=== PATIENT | female | born 1995 | race American Indian/Alaskan Native ===

== ENCOUNTER 2019-11-12 20:48 | Emergency (ER) | payer BC, OTHER ==
[2019-11-12] MEDS ORDERED: TETANUS,DIPH,PERTUSS(ACELL) VACCINE 0.5 ML SYRINGE IM ONE (21:32)
--- NOTE | 2019-11-12 21:32 | Event Note ---
ED Screening Note ED Screening Note: SI that began tonight self harm, cut her arms, used a hunting knife unsure of last tetanus immunization states she was going to take pills and drink alcohol to overdose states in the past she has engaged in self harming behavior has never been to a psych facility no [place] no hallucinations PMHx IBS, depression, anxiety LNMP: end october +tobacco +marijuana occ drinker +cocaine, used yesterday This initial assessment/diagnostic orders/clinical plan/treatment(s) is/are subject to change based on patients health status, clinical progression and re- assessment by fellow clinical providers in the ED. Further treatment and workup at subsequent clinical providers discretion. Patient/guardian urged not to elope from the ED as their condition may be serious if not clinically assessed and managed. Initial orders include: medical clearance for psych ED hold mental health consult
[2019-11-12 22:29] LABS: Amphetamine Screen,Urine PRESUMPTIVE NEGATIVE; Methadone Screen,Urine PRESUMPTIVE NEGATIVE; Opiate Screen,Urine PRESUMPTIVE NEGATIVE
[2019-11-12 22:29] LABS: Basophils % (Auto) 0.2 % (0.0-1.8); Eosinophils # (Auto) 0.1 K/mm3 (0.0-0.4); Hematocrit 37.6 % (30.3-42.9); Hemoglobin 12.5 gm/dl (10.1-14.3); Lymphocytes # (Auto) 1.5 K/mm3 (1.2-5.4); Lymphocytes % (Auto) 15.2 % (13.4-35.0); Mean Corpuscular HGB Conc 33 % (30-34); Mean Corpuscular Volume 78 fl (79-97); Monocytes # (Auto) 0.6 K/mm3 (0.0-0.8); Monocytes % (Auto) 6.1 % (0.0-7.3); Platelet Count 398 K/mm3 (140-440); Red Blood Count 4.83 M/mm3 (3.65-5.03); Red Cell Distribution Width 15.4 % (13.2-15.2)
[2019-11-12 22:31] LABS: Alanine Aminotransferase 12 units/L (7-56); Albumin 4.4 g/dL (3.9-5); BUN/Creatinine Ratio 11; Blood Urea Nitrogen 10 mg/dL (7-17); Calcium 9.5 mg/dL (8.4-10.2); Hemolysis Index 1
[2019-11-12 22:38] LABS: Bilirubin,Urine NEG (Negative); Color,Urine Yellow (Yellow)
[2019-11-12 22:39] LABS: Blood,Urine NEG (Negative); Mucus,Urine 1+ /HPF; Protein,Urine <15 mg/dL mg/dL (Negative); WBC,Urine < 1.0 /HPF (0.0-6.0)
[2019-11-12 22:41] LABS: Benzodiazepines Screen,Urine PRESUMPTIVE POSITIVE; Cannabinoid Screen,Urine PRESUMPTIVE POSITIVE; Cocaine Screen,Urine PRESUMPTIVE POSITIVE
--- NOTE | 2019-11-13 02:28 | Emergency Department Report ---
HPI - General Chief Complaint: Psych Time Seen by Provider: 11/12/19 21:28 - HPI HPI: 24-year-old female presents to the emergency department from home with the complaint of depression and suicidal thoughts. The patient has a history of major depression disorder, bipolar disorder and anxiety. She takes Wellbutrin, lamotrigine and citalopram and says she is compliant with her psychiatric medications. She follows up with a Dr. Amaral outpatient for psych. The patient says that there is no one particular thing that is causing her to feel so depressed or suicidal but says that everything is overwhelming and that she is feeling "emotionally sick." Patient says that she had the plan to cut herself, drink an excessive amount of alcohol and take pills in order to harm herself. She denies any homicidal ideations or any hallucinations. The patient says she has never been inpatient psych before. She has a past medical history of IBS. ED Past Medical Hx - Past Medical History Hx Psychiatric Treatment: Yes (DRUG ABUSE,DEPRESSION, SELF MUTALATION) Additional medical history: IBS - Social History Smoking Status: Current Every Day Smoker Substance Use Type: Alcohol, Cocaine, Marijuana - Medications Home Medications: Home Medications Medication Instructions Recorded Confirmed Last Taken Type Bupropion HCl ER 150 mg PO QHS 11/13/19 11/13/19 Unknown History Escitalopram 20 mg PO HS 11/13/19 11/13/19 Unknown History Ibuprofen 800 mg PO PRN PRN 11/13/19 11/13/19 Unknown History Lubiprostone (Nf) [Amitiza] 8 mcg PO BID 11/13/19 11/13/19 11/12/19 22:00 History clonazePAM 2 mg PO QHS 11/13/19 11/13/19 Unknown History lamoTRIgine 200 mg PO QHS 11/13/19 11/13/19 Unknown History ED Review of Systems ROS: Stated complaint: SI/MH Other details as noted in HPI Comment: All other systems reviewed and negative Constitutional: denies: chills, fever Respiratory: denies: cough, shortness of breath Cardiovascular: denies: chest pain, palpitations Gastrointestinal: denies: abdominal pain, vomiting Musculoskeletal: denies: back pain Neurological: denies: headache Psychiatric: suicidal thoughts. denies: auditory hallucinations, visual hallucinations, homicidal thoughts Physical Exam - Physical Exam Vital Signs: Vital Signs 11/12/19 11/12/19 21:26 21:35 Temperature 97.9 F 97.9 F Pulse Rate 92 H 92 H Respiratory 18 18 Rate Blood Pressure 127/75 127/75 O2 Sat by Pulse 97 97 Oximetry Physical Exam: GENERAL: The patient is well-developed well-nourished. HEENT: Normocephalic. Atraumatic. Patient has moist mucous membranes. EYES: Extraocular motions are intact. NECK: Supple. Trachea is midline. CHEST/LUNGS: Clear to auscultation. There is no respiratory distress noted. HEART/CARDIOVASCULAR: Regular. There is no tachycardia. There is no murmur. ABDOMEN: Abdomen is soft, nontender. Patient has normal bowel sounds. There is no abdominal distention. SKIN:Skin is warm and dry. There are multiple old lacerations to the volar left forearm consistent with her history of self cutting. NEURO: The patient is awake, alert, and oriented. The patient is cooperative. The patient has no focal neurologic deficits. Normal speech. MUSCULOSKELETAL: There is no tenderness or deformity. There is no evidence of acute injury. PSYCH: Patient has a flat affect. ED Course Vital Signs 11/12/19 11/12/19 21:26 21:35 Temperature 97.9 F 97.9 F Pulse Rate 92 H 92 H Respiratory 18 18 Rate Blood Pressure 127/75 127/75 O2 Sat by Pulse 97 97 Oximetry ED Medical Decision Making - Lab Data Result diagrams: 11/12/19 21:46 11/12/19 21:46 - Medical Decision Making This patient presents with depression and suicidal ideations with a plan for multiple different modalities in which to harm herself. For this reason she has been made a 1013. Labs have been unremarkable except for a urine drug screen positive for cocaine, benzodiazepines and marijuana. Vital signs have been stable throughout her ED course. The patient is medically cleared for psychiatric placement. - Differential Diagnosis depression, bipolar disorder, schizoaffective, substance abuse Critical Care Time: No Critical care attestation.: If time is entered above; I have spent that time in minutes in the direct care of this critically ill patient, excluding procedure time. ED Disposition Clinical Impression: Suicidal ideations Depression Qualifiers: Depression Type: unspecified Qualified Code(s): F32.9 - Major depressive disorder, single episode, unspecified Disposition: [id number]/TX-[id number] PSY HOSP/PSY UNIT Is pt being admited?: No Condition: Stable Referrals: SUKHWINDER DELGADILLO MD [Primary Care Provider] - 3-5 Days Time of Disposition: 02:28
[2019-11-13] MEDS ORDERED: TETANUS,DIPH,PERTUSS(ACELL) VACCINE 0.5 ML SYRINGE IM ONE (06:30)
[2019-11-13] MEDS ORDERED: IBUPROFEN 800 MG TAB PO PRN (11:57)
[2019-11-13] MEDS ORDERED: LUBIPROSTONE 8 MCG PO SCH (12:00)
[2019-11-13] MEDS: LUBIPROSTONE 8 MCG PO SCH ×2 (15:15→21:50)
[2019-11-14] MEDS: LUBIPROSTONE 8 MCG PO SCH ×2 (10:36→22:50)
--- NOTE | 2019-11-14 15:52 | Consultation ---
History of Present Illness - Reason for Consult Consult date: 11/14/19 Reason for consult: psychiatric assessment - History of Present Psychiatric Illness ms mckenzie is a 24-year-old -[place] female, the patient is alert oriented x2, able to make her needs known, dressed appropriately for the occasion, she maintains eye contact. The patient states, "I was brought here because of suicide ideation and depression". The patient reports that she has a history of depression, anxiety and bipolar. She reports that she is greatly depressed which is worsting her suicidal thoughts, she reports that the pressures of life are getting to her. The patient reports that she does cocaine and marijuana last cocaine use was Wednesday the patient denies homicidal ideat ion. The patient denies visual or auditory hallucination. The patient reports eating well and sleeping a lot. The patient reports that she is severely depressed she feels hopeless she worries all the time and sometimes she feels it would be better off if she was , she also report crying spells. The patient reports that she has been compliant with her medication regiment. PAST PSYCHIATRIC HISTORY: Diagnoses: Depression, anxiety and bipolar Suicide attempts or Self-harm behavior: yes Prior psychiatric hospitalizations: no Substance Abuse history: Cocaine and marijuana Previous psychiatric medications tried: Clonazepam, Lamictal, Wellbutrin and Lexapro Outpatient treatment: yes PAST MEDICAL HISTORY: Family Psychiatric History cousins SOCIAL HISTORY Marital Status: Single Living Arrangements: Mom and dad Employment Status: Unemployed Access to guns/weapons: Denies Education: 12th grade History of Abuse: Denies Legal History: Denies ROS: Constitutional: Negative for weight loss ENT: Negative for stridor Respiratory: Negative for cough or hemoptysis All other systems reviewed and are negative MENTAL STATUS General Appearance and Behavior: age appropriate, good eye contact, cooperative with questioning and polite Cooperation: Cooperative Psychomotor Behavior: within normal limits Mood: OK Affect and affective range: Congruent with stated mood Thought Process: Fluent/Logical and Goal-directed Thought Content: Within reality Speech: Normal volume and Regular rate and rhythm Intellectual Functioning Average Suicidal Ideation: yes Homicidal Ideation: Denies HI Impulse Control: intact Insight and Judgment: fair Memory: Normal Attention: Normal Orientation: alert and oriented RECOMMENDATIONS MEDICATIONS clonazepam 2mg daily lamictal 200mg daily wellbutrin 150mg qhs olanzapine 2.5mg daily Risks, benefits and alternatives of medications discussed with the patient, questions answered and consent obtained from patient. PSYCHOTHERAPY: Supportive psychotherapy provided MEDICAL: Per primary team DELIRIUM PRECAUTIONS: Please re-orient patient frequently, keep lights on during the day, and minimize benzodiazepines and opiates as these medications could worsen patient's confusion. OPERATIONS MANAGER/COORDINATOR: DISPOSITION: indication for acute inpatient psychiatric hospitalization at this time, will follow until transferred LEGAL STATUS: 1013 FOLLOW-UP: Will follow Medications and Allergies Allergies Allergy/AdvReac Type Severity Reaction Status Date / Time No Known Allergies Allergy Unverified 08/09/18 10:40 Home Medications Medication Instructions Recorded Confirmed Last Taken Type Bupropion HCl ER 150 mg PO QHS 11/13/19 11/13/19 Unknown History Escitalopram 20 mg PO HS 11/13/19 11/13/19 Unknown History Ibuprofen 800 mg PO PRN PRN 11/13/19 11/13/19 Unknown History Lubiprostone (Nf) [Amitiza] 8 mcg PO BID 11/13/19 11/13/19 11/12/19 22:00 History clonazePAM 2 mg PO QHS 11/13/19 11/13/19 Unknown History lamoTRIgine 200 mg PO QHS 11/13/19 11/13/19 Unknown History Active Meds: Active Medications Ibuprofen (Ibuprofen) 800 mg PO ONCE PRN PRN Reason: Pain , Severe (7-10) Last Admin: 11/13/19 15:15 Dose: 800 mg Documented by: Lubiprostone (Amitiza (Nf)) 8 mcg PO BID LORI Last Admin: 11/14/19 10:36 Dose: 8 mcg Documented by: Mental Status Exam - Vital signs Last Vital Signs Temp 98.2 F 11/14/19 15:26 Pulse 81 11/14/19 15:26 Resp 20 11/14/19 15:26 BP 119/72 11/14/19 15:26 Pulse Ox 100 11/14/19 15:26 Results Result Diagrams: 11/12/19 21:46 11/12/19 21:46 All other labs normal.
[2019-11-14] MEDS ORDERED: NON-FORMULARY EACH (Escitalopram 20 MG) PO SCH (22:00)
[2019-11-14] MEDS ORDERED: LAMOTRIGINE 200 MG PO SCH (22:00)
[2019-11-14] MEDS ORDERED: CLONAZEPAM 2 MG PO SCH (22:00)
[2019-11-14] MEDS ORDERED: BUPROPION HCL 150 MG PO SCH (22:00)
[2019-11-14] MEDS ORDERED: lamoTRIgine 100 MG TAB PO SCH (22:00)
[2019-11-14] MEDS ORDERED: ESCITALOPRAM 10 MG TAB PO SCH (22:00)
[2019-11-14] MEDS ORDERED: buPROPion SR 150 MG TAB PO SCH (22:00)
[2019-11-15 09:06] VITALS: BP 127/73
[2019-11-15] MEDS: LUBIPROSTONE 8 MCG PO SCH (09:57)
== END 2019-11-15 12:26 ==
LOC: EEVIPCON 20:48 → ED 20:48
DX: F32.89 Other specified depressive episodes (principal); F17.200 Nicotine dependence, unspecified, uncomplicated; F12.10 Cannabis abuse, uncomplicated; F14.10 Cocaine abuse, uncomplicated
CPT/HCPCS: 36415; 80053; 80307; 80320; 81001; 82550; 84703; 85025; 90471; 90715; G0480